=== PATIENT | female | born 2000 | race Two or more races ===

== ENCOUNTER 2020-10-11 05:35 | Day surgery (SDC) | payer OTHER ==
[2020-10-08 09:45] LABS: HEMATOCRIT 39.6 % (36.0-47.0); HEMOGLOBIN 13.4 g/dL (12.0-15.5); MEAN CORPUSCULAR HEMOGLOBIN 29.4 pg (27.0-33.4); MEAN CORPUSCULAR HGB CONC 33.9 g/dL (32.0-36.0); MEAN CORPUSCULAR VOLUME 87 fl (80-97); PLATELET COUNT 289 10^3/uL (150-450); RED BLOOD COUNT 4.56 10^6/uL (3.72-5.28); RED CELL DISTRIBUTION WIDTH 12.2 % (11.5-14.0); WHITE BLOOD COUNT 6.1 10^3/uL (4.0-10.5)
[2020-10-08 10:08] LABS: APPEARANCE,URINE CLOUDY; BILIRUBIN,URINE NEGATIVE (NEGATIVE); COLOR,URINE YELLOW; GLUCOSE, URINE NEGATIVE (NEGATIVE); KETONES,URINE NEGATIVE (NEGATIVE); LEUKOCYTE ESTERASE,URINE SMALL (NEGATIVE); NITRITE,URINE NEGATIVE (NEGATIVE); PROTEIN,URINE 30 mg/dL (NEGATIVE); URINE SPECIFIC GRAVITY 1.025; UROBILINOGEN,URINE NEGATIVE mg/dL (<2.0)
[~2020-10-11 05:35] MED LIST: CEFAZOLIN 1 GM/D5W RTU 1 GM/50 ML RTUPB IV PRN; LACTATED RINGERS 1000 ML IV PRN; LIDOCAINE 0.5% INJ-PF (5 MG/ML) 50 ML SDV SUBCUT PRN
[2020-10-11] MEDS ORDERED: CEFAZOLIN 1 GM/D5W RTU 1 GM/50 ML RTUPB IV ONE (05:56)
[2020-10-11] MEDS ORDERED: LIDOCAINE 0.5% INJ-PF (5 MG/ML) 50 ML SDV ONE (06:13)
[2020-10-11] MEDS ORDERED: FENTANYL CITRATE INJ/PF 100 MCG/2 ML AMPUL ONE (06:14)
[2020-10-11] MEDS ORDERED: MIDAZOLAM 2 MG/2 ML INJ ONE (06:15)
[2020-10-11] MEDS ORDERED: PROPOFOL INJ 200 MG/20 ML VIAL IV ONE (06:15)
[2020-10-11] MEDS ORDERED: ONDANSETRON HCL INJ/PF 4 MG/2 ML SDV ONE (06:15)
[2020-10-11 06:39] LABS: BLOOD UREA NITROGEN 15 mg/dL (7-20); CALCIUM 9.1 mg/dL (8.4-10.2); GLUCOSE 97 mg/dL (75-110); POTASSIUM 4.3 mmol/L (3.6-5.0)
[2020-10-11] MEDS ORDERED: DIPHENHYDRAMINE HCL 50 MG/ML VIAL IV PRN (06:41)
[2020-10-11] MEDS ORDERED: MEPERIDINE HCL/PF INJ 25 MG/1 ML DISP.SYRIN IV PRN (06:41)
[2020-10-11] MEDS ORDERED: FENTANYL CITRATE INJ/PF 100 MCG/2 ML AMPUL IV PRN ×3 (06:41)
[2020-10-11] MEDS ORDERED: PROMETHAZINE HCL INJ 25 MG/1 ML VIAL IV PRN ×2 (06:41)
[2020-10-11] MEDS ORDERED: ONDANSETRON HCL INJ/PF 4 MG/2 ML SDV IV PRN (06:41)
[2020-10-11 06:45] LABS: CARBON DIOXIDE 24 mmol/L (22-30); CHLORIDE 109 mmol/L (98-107)
[2020-10-11 06:50] LABS: ANION GAP 6 (5-19)
[2020-10-11] MEDS ORDERED: LIDOCAINE 1%/EPINEPHRINE INJ 20 ML VIAL ONE (06:59)
--- NOTE | 2020-10-11 07:49 | Operative Report ---
Operative Report DATE OF SURGERY: 10/11/20 PREOPERATIVE DIAGNOSIS: Hypertrophic labia minora POSTOPERATIVE DIAGNOSIS: Same OPERATION: Labioplasty SURGEON: [place] ANESTHESIA: LMAC TISSUE REMOVED OR ALTERED: Labia minora COMPLICATIONS: None ESTIMATED BLOOD LOSS: 10 mL INTRAOPERATIVE FINDINGS: Markedly hypertrophic labia minora that was interfering with sexual function as well as daily activities PROCEDURE: Patient was taken the operating room after preoperative assessment. Aware of usual risk of bleeding infection anesthesia damage to other organs and tissues. She is well aware of the possibility of dyspareunia after healing of this area. no Guarantees or warranties regarding improvement of sexual function been made to the patient. After anesthesia was noted local anesthesia instilled in the area demarcated removal site was above was marked just the labial tissue was excised uneventfully. Stitch of 3-0 Vicryl stitch was used to oversew the area with good hemostasis bilaterally. Taken recovery room stable condition
[2020-10-11] MEDS ORDERED: IBUPROFEN 800 MG TABLET ONE (09:25)
[2020-10-11 12:02] VITALS: BP 106/67
== END 2020-10-11 09:38 | disposition home or self-care (01) ==
LOC: OROUT 05:35
PROVIDERS: ATTEND Specialist
DX: N90.60 Unspecified hypertrophy of vulva (principal); Z01.812 Encounter for preprocedural laboratory examination; Z20.822 Contact with and (suspected) exposure to COVID-19; N94.10 Unspecified dyspareunia; E06.3 Autoimmune thyroiditis; Z79.890 Hormone replacement therapy
CPT/HCPCS: 36415 ×2; 85027; 87635; 81025; 80048; 81001; 56620; J2250; J0690; J3010; J3490 ×2; J2405; J2704; C9803; 940